=== PATIENT | female | born 1975 | race Caucasian/White ===

== ENCOUNTER 2018-02-06 22:14 | Emergency (ER) | payer OTHER ==
--- NOTE | 2018-02-06 23:56 | PDOC ---
History of Present Illness - General History Source: Patient Exam Limitations: No Limitations - History of Present Illness Initial Comments: 02/06/18 23:57 The patient is a 42 year old female, with no significant past medical history, who presents to the emergency department with frontal headache, dizziness, nausea, vomiting today, as well as persistent right facial pain since being evaluated in the ED at [facility] on 01/30/18. She states she has had a frontal headache all day despite use of tramadol. She states she developed nausea and had 3 episodes of NBNB emesis since 5PM this evening. She was seen on 01/30/18 at [facility] in [place] for right facial swelling and pain , was diagnosed with facial neuralgia after having a negative sinus CT scan at the time. She was prescribed a medrol pack and 50mg tramadol and given a referral for neurology, however, because of insurance issues had to find a different neurologist, Dr. Hurtado, who she has an appointment with at the end of February. The patient denies chest pain, shortness of breath. The patient denies fever, chills, diarrhea and constipation. The patient denies dysuria, frequency, urgency and hematuria. Allergies: NKDA Past surgical history: none reported Social history: denies toxic habits PCP - Dr. Park <Carla Castle - Last Filed: 02/06/18 23:56> <Falguni Stuart - Last Filed: 02/07/18 02:03> - General Chief Complaint: Nausea/Vomiting Stated Complaint: DIZZINESS,VOMIT Time Seen by Provider: 02/06/18 23:40 Past History <Carla Castle - Last Filed: 02/06/18 23:56> <Falguni Stuart - Last Filed: 02/07/18 02:03> - Past Medical History Allergies/Adverse Reactions: Allergies Allergy/AdvReac Type Severity Reaction Status Date / Time No Known Allergies Allergy Verified 02/06/18 23:52 Home Medications: Ambulatory Orders NK [No Known Home Medication] 02/07/18 Review of Systems - Review of Systems Able to Perform ROS?: Yes Comments:: 02/06/18 23:57 CONSTITUTIONAL: Absent: fever, chills, diaphoresis, generalized weakness, malaise, loss of appetite HEENT: (+) right facial pain. Absent: rhinorrhea, nasal congestion, throat pain, throat swelling, difficulty swallowing, mouth swelling, ear pain, eye pain, visual Changes CARDIOVASCULAR: Absent: chest pain, syncope, palpitations, irregular heart rate, lightheadedness , peripheral edema RESPIRATORY: Absent: cough, shortness of breath, dyspnea with exertion, orthopnea, wheezing, stridor, hemoptysis GASTROINTESTINAL: (+) nausea, vomiting, Absent: abdominal pain, abdominal distension, diarrhea, constipation, melena, hematochezia GENITOURINARY: Absent: dysuria, frequency, urgency, hesitancy, hematuria, flank pain, genital pain MUSCULOSKELETAL: Absent: myalgia, arthralgia, joint swelling SKIN: Absent: rash, itching, pallor HEMATOLOGIC/IMMUNOLOGIC: Absent: easy bleeding, easy bruising, lymphadenopathy, frequent infections ENDOCRINE: Absent: unexplained weight gain, unexplained weight loss, heat intolerance, cold intolerance NEUROLOGIC: (+) headache, dizziness, Absent: focal weakness or paresthesias, unsteady gait, seizure, mental status changes, bladder or bowel incontinence PSYCHIATRIC: Absent: anxiety, depression, suicidal or homicidal ideation, hallucinations. <Carla Castle - Last Filed: 02/06/18 23:56> *Physical Exam - Physical Exam Comments: 02/06/18 23:57 GENERAL: Well developed, well nourished. Awake and alert. No acute distress. HEENT: Normocephalic, atraumatic. PERRLA, EOMI. No conjunctival pallor. Sclera are non- icteric. Moist mucous membranes. Oropharynx is clear. NECK: Supple. Full ROM. No JVD. Carotid pulses 2+ and symmetric, without bruits. No thyromegaly. No lymphadenopathy. CARDIOVASCULAR: Regular rate and rhythm. No murmurs, rubs, or gallops. Distal pulses are 2+ and symmetric. PULMONARY: No evidence of respiratory distress. Lungs clear to auscultation bilaterally. No wheezing, rales or rhonchi. ABDOMINAL: Soft. Non-tender. Non-distended. No rebound or guarding. No organomegaly. Normoactive bowel sounds. MUSCULOSKELETAL Normal range of motion at all joints. No bony deformities or tenderness. No CVA tenderness. EXTREMITIES: No cyanosis. No clubbing. No edema. No calf tenderness. SKIN: Warm and dry. Normal capillary refill. No rashes. No jaundice. NEUROLOGICAL: Alert, awake, appropriate. Cranial nerves 2-12 intact. Normoreflexic in the upper and lower extremities. Normal speech. Toes are down-going bilaterally. Gait is normal without ataxia. PSYCHIATRIC: Cooperative. Good eye contact. Appropriate mood and affect. <Carla Castle - Last Filed: 02/06/18 23:56> ED Treatment Course - LABORATORY CBC & Chemistry Diagram: 02/07/18 00:00 02/07/18 00:00 <Falguni Stuart - Last Filed: 02/07/18 02:03> Medical Decision Making - Medical Decision Making 02/07/18 01:37 42-year-old female who was recently diagnosed with trigeminal neuralgia on the right side of her face presents with frontal headache and some nausea and vomiting. She went to [facility] on January 30 with right side facial pain and was discharged with a diagnosis of trigeminal neuralgia and placed on a Medrol Dosepak and tramadol She does have an appointment with neurologist for follow-up for her facial pain. She says it is intermittent . 02/07/18 02:03 CAT scan of the head this evening shows a normal exam. There is no bleed, mass , or extra-axial fluid collection mass effect or skull fracture. <Falguni Stuart - Last Filed: 02/07/18 02:03> *DC/Admit/Observation/Transfer - Attestations Scribe Attestion: 02/06/18 23:58 Documentation prepared by Carla Castle, acting as infertility medical assistant for Falguni Stuart MD <Carla Castle - Last Filed: 02/06/18 23:56>
[2018-02-06] MEDS ORDERED: SODIUM CHLORIDE 1,000 ML IV STA (23:57)
[2018-02-06] MEDS ORDERED: ONDANSETRON 4 MG/2 ML VIAL IVPUSH STA (23:57)
[2018-02-07] MEDS ORDERED: ONDANSETRON 4 MG/2 ML VIAL ONE (00:23)
[2018-02-07 00:37] LABS: BASO % 0.4 % (0-2.0); EOS % 0.2 % (0-4.5); HEMOGLOBIN 13.5 GM/dL (10.7-15.3); LYMPH % 21.7 % (8-40); MCH 30.8 pg (25.7-33.7); MCHC 34.6 g/dl (32.0-36.0); MEAN CELL VOLUME 88.9 fl (80-96); MEAN PLT VOLUME 7.5 fl (7.5-11.1); NEUT % 72.7 % (42.8-82.8); PLATELET COUNT 277 K/MM3 (134-434); RBC 4.38 M/mm3 (3.60-5.2); RDW 13.4 % (11.6-15.6); WHITE BLOOD COUNT 9.7 K/mm3 (4.0-10.0)
[2018-02-07] MEDS ORDERED: traMADol HCL 50 MG TABLET PO ONE (01:12)
[2018-02-07 01:16] LABS: ALK PHOS 50 U/L (45-117); ANION GAP 6 MMOL/L (8-16); BILIRUBIN,TOTAL 0.3 mg/dL (0.2-1); BLOOD UREA NITROGEN 16 mg/dL (7-18); CHLORIDE 99 mmol/L (98-107); CO2 30 mmol/L (21-32); CREATININE 0.8 mg/dL (0.55-1.3); GLUCOSE,RANDOM 109 mg/dL (74-106); LIPASE 73 U/L (73-393); SGOT/AST 17 U/L (15-37); SGPT/ALT 15 U/L (13-61); SODIUM 135 mmol/L (136-145); TOT PROT 7.8 g/dl (6.4-8.2)
[2018-02-07 01:36] VITALS: BMI 24.9
[2018-02-07] MEDS ORDERED: traMADol HCL 50 MG TABLET ONE (02:04)
[2018-02-07] MEDS ORDERED: MECLIZINE HCL 25 MG TABLET (FP) PO ONE (02:08)
[2018-02-07] MEDS ORDERED: METOCLOPRAMIDE HCL INJECTION 10 MG/2 ML VIAL IVPB ONE (02:12)
[2018-02-07] MEDS ORDERED: METOCLOPRAMIDE HCL INJECTION 10 MG/2 ML VIAL ONE (02:22)
[2018-02-07] MEDS ORDERED: MECLIZINE HCL 25 MG TABLET (FP) ONE (02:23)
[2018-02-07 03:09] LABS: URINE APPEARANCE CLEAR; URINE BILIRUBIN NEGATIVE (<2.0 mg/dL); URINE COLOR YELLOW; URINE GLUCOSE (UA) NEGATIVE (NEGATIVE); URINE KETONE NEGATIVE (NEGATIVE); URINE LEUK ESTERASE TRACE (NEGATIVE); URINE NITRITE NEGATIVE (NEGATIVE); URINE PROTEIN NEGATIVE (NEGATIVE); URINE UROBILINOGEN NEGATIVE mg/dL (0.2-1.0)
[2018-02-07 03:39] LABS: EPI CELLS FEW /HPF (FEW); URINE MUCUS RARE
--- NOTE | 2018-02-07 04:27 | PDOC ---
*Physical Exam - Vital Signs Last Vital Signs Temp Pulse Resp BP Pulse Ox 97.9 F 70 17 122/77 100 02/06/18 22:15 02/06/18 22:15 02/06/18 22:15 02/06/18 22:15 02/06/18 22:15 ED Treatment Course - LABORATORY CBC & Chemistry Diagram: 02/07/18 00:00 02/07/18 00:00 - ADDITIONAL ORDERS Additional order review: Laboratory Results 02/07/18 02/07/18 02/07/18 02:51 00:00 00:00 Sodium 135 L Potassium 4.0 Chloride 99 Carbon Dioxide 30 Anion Gap 6 L BUN 16 Creatinine 0.8 Creat Clearance w eGFR > 60 Random Glucose 109 H Calcium 9.0 Total Bilirubin 0.3 AST 17 ALT 15 Alkaline Phosphatase 50 Total Protein 7.8 Albumin 4.0 Lipase 73 Serum , Qual Negative Urine Color Yellow Urine Appearance Clear Urine pH 7.0 Ur Specific [place] 1.012 Urine Protein Negative Urine Glucose (UA) Negative Urine Ketones Negative Urine Blood 1+ H Urine Nitrite Negative Urine Bilirubin Negative Urine Urobilinogen Negative Ur Leukocyte Esterase Trace Urine WBC (Auto) 14 Urine RBC (Auto) 10 Ur Epithelial Cells Few Urine Mucus Rare 02/07/18 00:00 RBC 4.38 MCV 88.9 MCHC 34.6 RDW 13.4 MPV 7.5 Neutrophils % 72.7 Lymphocytes % 21.7 Monocytes % 5.0 Eosinophils % 0.2 Basophils % 0.4 - Medications Given in the ED: ED Medications Discontinued Medications Generic Name Dose Route Start Last Admin Trade Name Freq PRN Reason Stop Dose Admin Sodium Chloride 1,000 mls @ 1,000 mls/hr 02/06/18 23:57 02/07/18 00:32 Normal Saline - IV 02/07/18 00:56 1,000 mls/hr ASDIR STA Administration Meclizine HCl 25 mg 02/07/18 02:08 02/07/18 02:34 Antivert - PO 02/07/18 02:09 25 mg ONCE ONE Administration Metoclopramide HCl 10 mg 02/07/18 02:12 02/07/18 02:34 Reglan Injection - IVPB 02/07/18 02:13 10 mg ONCE ONE Administration Ondansetron HCl 4 mg 02/06/18 23:57 02/07/18 00:32 Zofran Injection IVPUSH 02/06/18 23:58 4 mg ONCE STA Administration Tramadol HCl 50 mg 02/07/18 01:12 02/07/18 02:07 Ultram - PO 02/07/18 01:13 50 mg ONCE ONE Administration Medical Decision Making - Medical Decision Making 02/07/18 04:22 Care received at 0200 Pt presents with 1 week of headache, dizziness, nausea, 1 episode vomiting Labs wnl, UA with some LE and WBCs but pt with no urinary symptoms Pt pending evaluation after meds On re-eval, pt states she feels much better Only mild frontal headache at this time No dizziness, nausea Ambulating in ED with steady gait, clinically well appearing tolerating PO has f/u with neuro later this month requests DC home I discussed the physical exam findings, ancillary test results and final diagnoses with the patient. I answered all of the patient's questions. The patient was satisfied with the care received and felt comfortable with the discharge plan and treatment plan. The patient will call their primary care physician within 24 hours to arrange follow-up and will return to the Emergency Department with any new, persistent or worsening symptoms. 02/07/18 05:00 BP on DC 80s/50s, pt is sleeping on check states her baseline is usually in the 90s systolic so she is not far off Pt feels well, no dizziness Will give small bolus and reassess 02/07/18 06:02 Rpt BP 91/51 Pt is asymptomatic and feels well Ambulating in ED Will DC *DC/Admit/Observation/Transfer Diagnosis at time of Disposition: Nausea & vomiting, Headache, Dizziness - Discharge Dispostion Disposition: HOME Condition at time of disposition: Stable Decision to Admit order: No - Prescriptions Prescriptions: Meclizine HCl 25 mg PO TID PRN #10 tablet PRN Reason: Vertigo Metoclopramide HCl [Reglan -] 10 mg PO BID PRN #8 tablet PRN Reason: Nausea - Referrals - Patient Instructions Printed Discharge Instructions: DI for Vomiting -- Adult, DI for Headache Additional Instructions: Follow up with the neurologist as scheduled. Follow up with your primary doctor within 1 week. Return to the emergency department if you have any new, worsening or concerning symptoms. - Post Discharge Activity - Attestations Physician Attestion: 02/07/18 04:38 IDr. Geovanna MD, attest that this document has been prepared under my direction and personally reviewed by me in its entirety. I further attest, that it accurately reflects all work, treatment, procedures and medical decision -making performed by me.
[2018-02-07 05:06] VITALS: PULSE 56; TEMP 98.1
[2018-02-07 06:27] VITALS: BP 91/51
== END 2018-02-07 06:36 | disposition home or self-care (01) ==
LOC: JER 22:14
PROC: 3E033GC Introduction of Other Therapeutic Substance into Peripheral Vein, Percutaneous Approach (ICD-10-PCS; principal; 2018-02-06)
PROC: 3E033GC Introduction of Other Therapeutic Substance into Peripheral Vein, Percutaneous Approach (ICD-10-PCS; 2018-02-06)
DX: R51 Headache (principal); R11.2 Nausea with vomiting, unspecified; R42 Dizziness and giddiness
CPT/HCPCS: 36415; 70450-TC; 80053; 81003; 81015; 83690; 84703; 85025; 96374; 96375; 99283-25; J7030